=== PATIENT | female | born 1940 | race Caucasian/White ===

== ENCOUNTER 2020-11-22 14:07 | Observation (INO) | payer MEDICARE ==
[~2020-11-22] VITALS: Ht 167.6 cm; Wt 110.9 kg
[2020-11-22 15:02] LABS: BASOPHILS # (AUTO) 0.1 X10'3 (0-0.2); BASOPHILS % (AUTO) 0.9 % (0-1); EOSINOPHILS # (AUTO) 0.1 X10'3 (0-0.9); EOSINOPHILS % (AUTO) 2.2 % (0-6); HEMATOCRIT 35.2 % (35.0-45.0); HEMOGLOBIN 11.5 g/dl (12.0-16.0); LYMPHOCYTES # (AUTO) 1.2 X10'3 (1.1-4.8); LYMPHOCYTES % (AUTO) 19.1 % (21-51); MEAN CORPUSCULAR HEMOGLOBIN 26.8 PG (27.0-31.0); MEAN CORPUSCULAR HGB CONC 32.7 g/dL (33.0-36.5); MEAN CORPUSCULAR VOLUME 81.8 FL (78-98); MEAN PLATELET VOLUME 8.1 FL (7.4-10.4); MONOCYTES # (AUTO) 0.5 X10'3 (0-0.9); MONOCYTES % (AUTO) 7.6 % (2-12); NEUTROPHILS # (AUTO) 4.3 X10'3 (1.8-7.7); NEUTROPHILS % (AUTO) 70.2 % (42-75); PLATELET COUNT 238 X10'3 (140-440); RED CELL DISTRIBUTION WIDTH 16.2 % (11.5-14.5); WHITE BLOOD COUNT 6.2 X10'3 (4.5-11.0)
[2020-11-22 15:13] LABS: PARTIAL THROMBOPLASTIN TIME 26 SECONDS (22-32)
[2020-11-22 15:19] LABS: ALANINE AMINOTRANSFERASE 22 U/L (12-78); ALBUMIN 3.8 G/DL (3.4-5.0); ANION GAP 9 (8-16); ASPARTATE AMINO TRANSFERASE 11 U/L (10-37); BILIRUBIN,TOTAL 0.5 MG/DL (0.1-1.0); BLOOD UREA NITROGEN 21 MG/DL (7-18); BUN/CREATININE RATIO 18.4 (6.6-38.0); CHLORIDE 106 MMOL/L (99-107); CREATININE 1.14 MG/DL (0.40-0.90); GLUCOSE 89 MG/DL (70-104); POTASSIUM 4.8 MMOL/L (3.5-5.1); SODIUM 141 MMOL/L (135-145); TOTAL CARBON DIOXIDE 26.4 MMOL/L (24-32); TOTAL PROTEIN 7.6 G/DL (6.4-8.2); eGFR 46 ML/MIN
[2020-11-22 15:20] LABS: ALKALINE PHOSPHATASE 88 IU/L (46-116)
[2020-11-22 15:23] LABS: TROPONIN I 0.42 NG/ML (0.0-0.05)
[2020-11-22] MEDS ORDERED: aspirin 81mg tab.chew PO SCH (15:40)
[2020-11-22] MEDS ORDERED: ATOR20TA66 PO (16:07)
[2020-11-22] MEDS ORDERED: METF-436 PO (16:07)
[2020-11-22] MEDS ORDERED: GABA600T13 PO (16:07)
[2020-11-22] MEDS ORDERED: LOSA50TA64 PO (16:07)
[2020-11-22] MEDS ORDERED: magnesium Cl slow-release 64mg tablet PO PRN (17:30)
[2020-11-22] MEDS ORDERED: PERFLUTREN PROTEIN-A MICROSPHR (Optison) 0.22 MG/ML 3ML VIAL IV ONE (17:30)
[2020-11-22] MEDS ORDERED: magnesium 2GM in 50ml NS 50 ML IV PRN (17:30)
[2020-11-22] MEDS ORDERED: ondansetron/PF 4mg/2ml inj IV PRN (17:30)
[2020-11-22] MEDS ORDERED: normal saline 1000ml 1,000 ML IV SCH (17:30)
[2020-11-22] MEDS ORDERED: acetaminophen 325mg tablet PO PRN (17:30)
[2020-11-22] MEDS ORDERED: potassium Cl 40MEQ/1/2NS 520ml 520 ML IV PRN ×2 (17:30)
[2020-11-22] MEDS ORDERED: potassium Cl 20 mEq SR tablet PO PRN ×2 (17:30)
[2020-11-22] MEDS ORDERED: magnesium 4gm in 100ml NS 100 ML IV PRN (17:30)
[2020-11-22] MEDS ORDERED: glucagon, human recombinant 1mg kit SUBCUT PRN (17:45)
[2020-11-22] MEDS ORDERED: dextrose 50%-water 50ml dispensing syringe IV PRN ×2 (17:45)
[2020-11-22] MEDS ORDERED: insulin Lispro (HumaLOG) vial - multi-dose SQ SCH (17:45)
[2020-11-22] MEDS ORDERED: MESSAGE TO PHARMACY PO ONE (17:45)
[2020-11-22] MEDS ORDERED: atorvastatin 20mg tablet PO SCH (17:45)
[2020-11-22] MEDS ORDERED: dextrose ORAL solution 15 GM/59 ML bottle PO PRN ×2 (17:45)
--- NOTE | 2020-11-22 19:00 | NUR ---
Received report from Bola NO from ED. Patient came up in a wheelchair. Patient placed into bed with bed locked and low. Call light placed within reach.
[2020-11-22 19:20] VITALS: BP 193/74
[2020-11-22] MEDS: K and/or MAG REPLACEMENT MC SCH (20:00)
[2020-11-22 20:30] VITALS: BP_SYST 119; BP_SYST 190; BP_SYST 197; BP_DIAS 68; BP_DIAS 70; BP_DIAS 72
[2020-11-22] MEDS ORDERED: clopidogrel 300mg tablet PO ONE (20:35)
[2020-11-22] MEDS: atorvastatin 20mg tablet PO SCH (21:11)
[2020-11-22 22:00] VITALS: BP 119/88
[2020-11-22] MEDS: insulin glargine (Lantus) pen - multi-dose SQ SCH (22:19)
[2020-11-23] VITALS (7 sets, daily range): BP systolic 149–197; BP diastolic 60–95
--- NOTE | 2020-11-23 06:27 | NUR ---
Problems reprioritized. Patient report given, questions answered & plan of care reviewed with Tarun NO and Olga Lidia NO.
--- NOTE | 2020-11-23 06:48 | NUR ---
Patient in room ORTHO 4022. I have received report from LILLIAN NO and had the opportunity to ask questions and assume patient care.
[2020-11-23 07:29] LABS: BASOPHILS # (AUTO) 0.1 X10'3 (0-0.2); BASOPHILS % (AUTO) 0.7 % (0-1); EOSINOPHILS # (AUTO) 0.2 X10'3 (0-0.9); EOSINOPHILS % (AUTO) 2.7 % (0-6); HEMATOCRIT 38.1 % (35.0-45.0); HEMOGLOBIN 12.3 g/dl (12.0-16.0); LYMPHOCYTES # (AUTO) 1.6 X10'3 (1.1-4.8); LYMPHOCYTES % (AUTO) 21.8 % (21-51); MEAN CORPUSCULAR HEMOGLOBIN 26.8 PG (27.0-31.0); MEAN CORPUSCULAR HGB CONC 32.3 g/dL (33.0-36.5); MEAN CORPUSCULAR VOLUME 82.8 FL (78-98); MEAN PLATELET VOLUME 8.7 FL (7.4-10.4); MONOCYTES # (AUTO) 0.7 X10'3 (0-0.9); MONOCYTES % (AUTO) 9.4 % (2-12); NEUTROPHILS # (AUTO) 4.8 X10'3 (1.8-7.7); NEUTROPHILS % (AUTO) 65.4 % (42-75); PLATELET COUNT 250 X10'3 (140-440); RED CELL DISTRIBUTION WIDTH 15.7 % (11.5-14.5); WHITE BLOOD COUNT 7.3 X10'3 (4.5-11.0)
[2020-11-23] MEDS: gabapentin 300mg capsule PO SCH ×2 (07:48→17:07)
[2020-11-23] MEDS: clopidogrel 75mg tablet PO SCH (07:48)
[2020-11-23] MEDS: aspirin 81mg tab.chew PO SCH (07:48)
[2020-11-23 07:59] LABS: ALBUMIN 3.6 G/DL (3.4-5.0); ANION GAP 14 (8-16); BLOOD UREA NITROGEN 25 MG/DL (7-18); BUN/CREATININE RATIO 20.8 (6.6-38.0); CALCIUM 8.6 MG/DL (8.5-10.1); CHLORIDE 104 MMOL/L (99-107); CHOL/HDL RATIO 4.9 (0.00-4.99); CHOLESTEROL 260 MG/DL (0-200); GLUCOSE 121 MG/DL (70-104); HDL CHOLESTEROL 53 MG/DL (35-60); LDL CHOLESTEROL 173 MG/DL (50-100); MAGNESIUM 2.2 MG/DL (1.5-2.4); POTASSIUM 4.5 MMOL/L (3.5-5.1); SODIUM 141 MMOL/L (135-145); TOTAL CARBON DIOXIDE 23.3 MMOL/L (24-32); TRIGLYCERIDES 162 MG/DL (20-135); eGFR 44 ML/MIN
[2020-11-23] MEDS ORDERED: atorvastatin 20mg tablet PO SCH (08:00)
[2020-11-23] MEDS: K and/or MAG REPLACEMENT MC SCH ×2 (08:00→20:00)
[2020-11-23] MEDS ORDERED: LORazepam 2 mg/ml vial IV ONE (08:20)
--- NOTE | 2020-11-23 09:11 | NUR ---
DM consult: Pt with A1c 6.9%, DM education not warranted at this time. Will continue to follow. Addendum: 11/23/20 at [address] Amended: Links added.
[2020-11-23 09:16] LABS: TROPONIN I 0.43 NG/ML (0.0-0.05)
--- NOTE | 2020-11-23 17:06 | NUR ---
PAGER ID: [phone] MESSAGE: Autumn [phone] - re [id number] Naomi. She is requesting a stool softener, she normally takes dulcolax at home and is reporting constipation. Can she have something?
--- NOTE | 2020-11-23 18:31 | NUR ---
Problems reprioritized. Patient report given, questions answered & plan of care reviewed with Lea NO.
--- NOTE | 2020-11-23 18:58 | NUR ---
Patient in room ORTHO 4022. I have received report from PATRICIA RN'S and had the opportunity to ask questions and assume patient care.
[2020-11-23] MEDS: insulin glargine (Lantus) pen - multi-dose SQ SCH (21:00)
[2020-11-23] MEDS: atorvastatin 20mg tablet PO SCH (21:37)
[2020-11-23] MEDS: docusate sod 100mg capsule PO SCH (22:05)
[2020-11-24 06:00] VITALS: BP 183/78
[2020-11-24 06:29] LABS: BASOPHILS % (AUTO) 0.8 % (0-1); EOSINOPHILS # (AUTO) 0.2 X10'3 (0-0.9); EOSINOPHILS % (AUTO) 3.5 % (0-6); HEMATOCRIT 35.3 % (35.0-45.0); HEMOGLOBIN 11.6 g/dl (12.0-16.0); LYMPHOCYTES # (AUTO) 1.4 X10'3 (1.1-4.8); LYMPHOCYTES % (AUTO) 23.3 % (21-51); MEAN CORPUSCULAR HEMOGLOBIN 26.7 PG (27.0-31.0); MEAN CORPUSCULAR HGB CONC 32.8 g/dL (33.0-36.5); MEAN CORPUSCULAR VOLUME 81.4 FL (78-98); MEAN PLATELET VOLUME 8.3 FL (7.4-10.4); MONOCYTES # (AUTO) 0.4 X10'3 (0-0.9); MONOCYTES % (AUTO) 7.6 % (2-12); NEUTROPHILS # (AUTO) 3.8 X10'3 (1.8-7.7); NEUTROPHILS % (AUTO) 64.8 % (42-75); PLATELET COUNT 215 X10'3 (140-440); RED BLOOD COUNT 4.34 X10'6 (4.20-5.60); RED CELL DISTRIBUTION WIDTH 15.9 % (11.5-14.5); WHITE BLOOD COUNT 5.8 X10'3 (4.5-11.0)
--- NOTE | 2020-11-24 06:48 | NUR ---
Patient in room ORTHO 4022. I have received report from ONEAL CONTRERAS and had the opportunity to ask questions and assume patient care.
--- NOTE | 2020-11-24 06:51 | NUR ---
Problems reprioritized. Patient report given, questions answered & plan of care reviewed with HALLEY & AMALIA RN'S.
--- NOTE | 2020-11-24 06:58 | NUR ---
Patient in room ORTHO 4020. I have received report from ONEAL Hall and had the opportunity to ask questions and assume patient care. Elizabeth Vargas RN will provide primary care. I will monitor all care and assist when needed. Addendum: 11/24/20 at 0659 by Lakeisha Jacob RN Patient in room ORTHO 4022A. I have received report from ONEAL Tate and had the opportunity to ask questions and assume patient care. Elizabeth Vargas RN will provide primary care. I will monitor all care and assist when needed.
[2020-11-24 06:59] LABS: ALBUMIN 3.3 G/DL (3.4-5.0); ANION GAP 7 (8-16); BLOOD UREA NITROGEN 27 MG/DL (7-18); BUN/CREATININE RATIO 22.7 (6.6-38.0); CALCIUM 8.2 MG/DL (8.5-10.1); CHLORIDE 105 MMOL/L (99-107); CREATININE 1.19 MG/DL (0.40-0.90); GLUCOSE 184 MG/DL (70-104); MAGNESIUM 2.2 MG/DL (1.5-2.4); POTASSIUM 4.3 MMOL/L (3.5-5.1); SODIUM 136 MMOL/L (135-145); TOTAL CARBON DIOXIDE 23.7 MMOL/L (24-32); eGFR 44 ML/MIN
[2020-11-24] MEDS: clopidogrel 75mg tablet PO SCH (08:34)
[2020-11-24] MEDS: docusate sod 100mg capsule PO SCH (08:34)
[2020-11-24] MEDS: aspirin 81mg tab.chew PO SCH (08:34)
[2020-11-24] MEDS: gabapentin 300mg capsule PO SCH (08:35)
[2020-11-24] MEDS: K and/or MAG REPLACEMENT MC SCH (08:36)
[2020-11-24] MEDS ORDERED: amLODIPine 5mg tablet PO SCH (10:00)
[2020-11-24] MEDS ORDERED: losartan 50mg tablet PO SCH (10:18)
[2020-11-24] MEDS ORDERED: ASPI81TA53 PO (10:23)
[2020-11-24] MEDS ORDERED: CLOP75TA34 PO (10:23)
[2020-11-24] MEDS ORDERED: NOR5T PO (10:23)
[2020-11-24 11:00] VITALS: BP 118/67
--- NOTE | 2020-11-24 11:19 | NUR ---
Page Sent PAGER ID: [phone] MESSAGE: Alicia [id number]. Regarding Rm 4022A Sanjuana Salgado. Pt received losartan 50mg, amlodipine 5mg- Orthostatic Bps 160/64 Lying, 170/78- sit, 180/28 standing-Pt asymptomatic. Okay to discharge home
[2020-11-24] MEDS ORDERED: hydrALAZINE 20mg/ml inj. IV ONE (11:25)
[2020-11-24 11:39] VITALS: BP_SYST 170
--- NOTE | 2020-11-24 12:56 | NUR ---
Page Sent PAGER ID: [phone] MESSAGE: Alicia Merino [phone] Regarding Rm 4022 Naomi, I- BP 160/70 manually 1 hour post hydralazine 5mg IV.
--- NOTE | 2020-11-24 14:33 | NUR ---
Reviewed discharge instructions including medications, f/u appointment, core measures/educational material- Pt agreeable. Removed 20G PIV from RFA without issue, tip intact. Removed tele. Pt escorted to private vehicle in stable condition.
--- NOTE | 2020-11-24 15:44 | NUR ---
Orientee documentation: I have reviewed and agree with all interventions, assessments performed and documented by ONEAL Vargas. Pt DC in stable condition.
== END 2020-11-24 14:33 | disposition home health service (06) ==
LOC: ER 14:08 → ED HOLD 17:30 → EDBEDREQ 18:10 → ORTHO 4S 19:03
PROVIDERS: ADMIT Internal Medicine; ATTEND Internal Medicine
DX: I63.9 Cerebral infarction, unspecified (principal); G45.9 Transient cerebral ischemic attack, unspecified; R20.2 Paresthesia of skin; E11.42 Type 2 diabetes mellitus with diabetic polyneuropathy; I10 Essential (primary) hypertension; R79.89 Other specified abnormal findings of blood chemistry; E78.5 Hyperlipidemia, unspecified; Z88.6 Allergy status to analgesic agent; Z88.8 Allergy status to other drugs, medicaments and biological substances; Z88.5 Allergy status to narcotic agent; Z79.899 Other long term (current) drug therapy
CPT/HCPCS: 36415; 70450; 70544; 70551; 71045; 80048; 80053; 80061; 82948; 83036; 83735; 84484; 85025; 85610; 85730; 87081; 93005; 93306; 93880; 96374; 99285; G0378; J0360; J1815